=== PATIENT | male | born 1955 | race Caucasian/White ===

== ENCOUNTER 2021-09-22 05:32 | Outpatient (CLI) | payer SELFPAY ==
[~2021-09-22] VITALS: Ht 185.5 cm; Wt 79.5 kg
== END 2021-09-22 14:00 | disposition home or self-care (01) ==
LOC: PREOP 05:32
PROVIDERS: ATTEND Otolaryngology Otolaryngology/Facial Plastic Surgery
DX: Z01.818 Encounter for other preprocedural examination (principal)

== ENCOUNTER 2021-09-25 07:46 | Day surgery (SDC) | payer SELFPAY ==
[2021-09-25] VITALS (9 sets, daily range): BP systolic 115–149; BP diastolic 71–95
[~2021-09-25] VITALS: Ht 185.5 cm; Wt 79.5 kg
[2021-09-25] MEDS ORDERED: LACTATED RINGERS 1,000 ML IV PRN (08:45)
[2021-09-25 08:47] LABS: BASOPHILS # (AUTO) 0.1 10^3/uL (0.0-0.1); BASOPHILS % (AUTO) 1 % (0-10); EOSINOPHILS # (AUTO) 0.1 10^3/uL (0.0-0.3); EOSINOPHILS % (AUTO) 2 % (0-10); HEMATOCRIT 48 % (40-54); HEMOGLOBIN 16.6 g/dL (13.3-17.7); LYMPHOCYTES # (AUTO) 1.9 10^3/uL (1.0-4.0); LYMPHOCYTES % (AUTO) 27 % (12-44); MEAN CORPUSCULAR HEMOGLOBIN 29 pg (25-34); MEAN CORPUSCULAR HGB CONC 35 g/dL (32-36); MEAN CORPUSCULAR VOLUME 84 fL (80-99); MEAN PLATELET VOLUME 10.3 fL (9.0-12.2); MONOCYTES # (AUTO) 0.7 10^3/uL (0.0-1.0); MONOCYTES % (AUTO) 10 % (0-12); NEUTROPHILS # (AUTO) 4.3 10^3/uL (1.8-7.8); NEUTROPHILS % (AUTO) 61 % (42-75); PLATELET COUNT 193 10^3/uL (130-400); WHITE BLOOD COUNT 7.1 10^3/uL (4.3-11.0)
[2021-09-25] MEDS ORDERED: SUCCINYLCHOLINE INJ 100 MG/5 ML SYR/VIAL ONE (08:57)
[2021-09-25] MEDS ORDERED: MIDAZOLAM 2 MG/2 ML (VERSED) VIAL ONE (08:57)
[2021-09-25] MEDS ORDERED: ONDANSETRON 4 MG/2 ML (SDV) Z0FRAN ONE (08:57)
[2021-09-25] MEDS ORDERED: ROCURONIUM 50 MG/5 ML (ZEMURON) VIAL IV ONE (08:57)
[2021-09-25] MEDS ORDERED: fentaNYL INJ 100 MCG/2 ML AMP ONE (08:57)
[2021-09-25] MEDS ORDERED: LIDOCAINE PF 2% 5 ML (XYLOCAINE) VIAL ONE (08:57)
[2021-09-25] MEDS ORDERED: proPOfol 200 MG/20 ML (DIPRIVAN) VIAL IV ONE (08:57)
[2021-09-25 09:05] LABS: CALCIUM 9.3 MG/DL (8.5-10.1); CREATININE SERUM 0.92 MG/DL (0.60-1.30)
[2021-09-25] MEDS ORDERED: LIDOCAINE/EPI 2% 1:200,00 (XYLOCAINE) 20 ML VIAL ONE (09:15)
--- NOTE | 2021-09-25 09:31 | Progress Note-Pre Operative ---
Pre-Operative Progress Note H&P Reviewed The H&P was reviewed, patient examined and no changes noted. Date Seen by Provider: Sep 25, 2021 Time Seen by Provider: 09:00 Date H&P Reviewed: Sep 25, 2021 Time H&P Reviewed: 09:00 Pre-Operative Diagnosis: Right Base of Tongue Mass NOÉ TRAN MD Sep 25, 2021 09:31
--- NOTE | 2021-09-25 09:32 | Progress Note-Post Operative ---
Post-Operative Progess Note Surgeon (s)/Refrigeration Repair Supervisor (s) Surgeon NOÉ TRAN MD Refrigeration Repair Supervisor n/a Pre-Operative Diagnosis Right Base of Tongue Mass Post-Operative Diagnosis same Post-Op Procedure Note Date of Procedure: Sep 25, 2021 Name of Procedure Performed: Direct Laryngoscopy with Biopsy of Right Base of Tongue Mass Description & Findings Description and Findings: n/a Anesthesia Type get Estimated Blood Loss minimal Packing none. Specimen(s) collected/removed right base of tongue biopsies NOÉ TRAN MD Sep 25, 2021 09:32
[2021-09-25] MEDS ORDERED: HYDROcodone/APAP 5 MG/325 MG (LORTAB) TAB PO PRN (09:45)
[2021-09-25] MEDS ORDERED: PROMETHAZINE INJ 25 MG/ML (PHENERGAN) AMP IV PRN (09:45)
[2021-09-25] MEDS ORDERED: GLYCOPYRROLATE 0.2 MG/ML (ROBINUL) 2 ML VIAL ONE (09:50)
[2021-09-25] MEDS ORDERED: NEOSTIGMINE (BLOXIVERZ ) 1 MG/1ML 10 ML VIAL ONE (09:50)
[2021-09-25] MEDS ORDERED: SEVOFLURANE (ULTANE) 15 ML INHAL SOLN ONE (09:56)
[2021-09-25] MEDS ORDERED: MEPERIDINE (DEMEROL) INJ 50 MG/ML IVP ONE (10:15)
[2021-09-25] MEDS ORDERED: PROMETHAZINE INJ 25 MG/ML (PHENERGAN) AMP IVP ONE (10:15)
[2021-09-25] MEDS ORDERED: ONDANSETRON 4 MG/2 ML (SDV) Z0FRAN IVP PRN (10:15)
[2021-09-25] MEDS ORDERED: morphine INJ 10 MG/ML 1ML (SYR OR VIAL) IVP ONE (10:15)
[2021-09-25] MEDS ORDERED: ACHD5005 PO (10:56)
--- NOTE | 2021-09-25 11:14 | Anesthesia-General Post-Op ---
General Patient Condition Mental Status/LOC: Same as Preop Cardiovascular: Satisfactory Nausea/Vomiting: Absent Respiratory: Satisfactory Pain: Controlled Complications: Absent Post Op Complications Complications None Follow Up Care/Instructions Patient Instructions None needed. Anesthesia/Patient Condition Patient Condition Patient is doing well, no complaints, stable vital signs, no apparent adverse anesthesia problems. No complications reported per nursing. DENZEL JOSUE CRNA Sep 25, 2021 11:14
== END 2021-09-25 11:30 ==
LOC: SDC 07:46
PROVIDERS: ATTEND Otolaryngology Otolaryngology/Facial Plastic Surgery
DX: K14.3 Hypertrophy of tongue papillae (principal); F17.210 Nicotine dependence, cigarettes, uncomplicated
CPT/HCPCS: 36415; 80048; 85025; 87081; 88305; 93005